=== PATIENT | female | born 1935 | race Caucasian/White ===

== ENCOUNTER 2017-12-07 05:55 | Observation (INO) ==
[2017-12-07] MEDS ORDERED: Bacitracin 50,000 UNIT, Polymyxin B Sulfate 500,000 UNIT, Sodium Chloride IRRigation 1,... IR ONE (06:00)
[2017-12-07] MEDS ORDERED: CeFAZolin Syr 2,000MG/20 ML 2,000 MG/20 ML SYRINGE IVPB ONE (06:24)
[2017-12-07] MEDS ORDERED: Ringers Solution, Lactated 1,000 ML IVC SCH ×2 (06:30→11:45)
[2017-12-07] MEDS ORDERED: Dexamethasone 4 MG/ML VIAL ONE (07:12)
[2017-12-07] MEDS ORDERED: Ondansetron 4 MG/2 ML VIAL ONE (07:12)
[2017-12-07] MEDS ORDERED: *HR* Rocuronium Bromide 50 MG/5 ML VIAL ONE (07:12)
[2017-12-07] MEDS ORDERED: Lidocaine -MPF 2% 2 ML VIAL ONE ×3 (07:12→08:03)
[2017-12-07] MEDS ORDERED: *HR* FentaNYL (PF) 100 MCG/2 ML VIAL ONE ×2 (07:12→09:18)
[2017-12-07] MEDS ORDERED: *HR* Propofol 200 MG/20 ML VIAL IVP ONE (07:16)
--- NOTE | 2017-12-07 07:20 | Anesthesia Evaluation PreOp ---
Date of Encounter: 12/07/17 Time of Encounter: 07:18 - Past History Planned Operation: Laminectomy L4-S1 Cardiac History: HTN, Hyperlipidemia, Cardiac Surgery (CABG x 2, 2001), Cardiac Stent (x2 2015), Other (Cleared for surgery by Fermenting Cellar Dropper) Pulmonary History: Denies Any Significant HX DIRECTOR OF MIDWIFERY/STAFF MIDWIFE History: Denies Any Significant HX Other Medical History: Thyroid (Hypo), Other (Breast CA) Anesthesia History: Past Anesthesia (Shoulder, CABG) : No Alcohol Use: none Drug use: none Medications and Allergies DULoxetine [Cymbalta] 30 mg PO DAILY 10/26/17 [History] HYDROcodone/Acet 5/325 mg [[place] 5-325 mg] 1 tab PO Q6H PRN 10/26/17 [History] Ibuprofen [Advil] 200 mg PO TID 10/26/17 [History] Levothyroxine [Synthroid] 125 mcg PO 0630 10/26/17 [History] Loratadine [Claritin] 10 mg PO DAILY 10/26/17 [History] Metoprolol [Lopressor] 25 mg PO BID 10/26/17 [History] Omeprazole Magnesium [Prilosec Otc] 20 mg PO DAILY 10/26/17 [History] Quetiapine Fumarate [SEROquel] 12 mg PO HS 10/26/17 [History] Rosuvastatin Calcium [Crestor] 20 mg PO DAILY 10/26/17 [History] 3 Allergy/AdvReac Type Severity Reaction Status Date / Time No Known Allergies Allergy Verified 11/19/17 15:04 - Meds/Allergy Pre-op Review Medications Reviewed: Yes Allergies Reviewed: Yes Beta Blockers on Current Med List: Yes If Beta Blockers taken, Date/Time (Last Dose taken): 04:30 12/07/2017 Anesthesia Results - Labs Laboratory Tests 11/19/17 11/19/17 11/19/17 15:05 15:05 15:05 WBC 7.9 Hgb 14.6 Hct 42.7 Plt Count 225 INR 1.0 Sodium 139 Potassium 4.2 Chloride 102 Carbon Dioxide 28 BUN 18 Creatinine 0.89 - Imaging EKG: report reviewed (SINUS RHYTHM NONSPECIFIC T-WAVE ABNORMALITY) Anesthesia Exam O2 Sat Height 1.57 m Height 1.57 m Height 1.57 m Weight 79.832 kg Weight 79.832 kg Weight 79.832 kg O2 Sat by Pulse Oximetry 94 Vital Signs Temp Pulse Resp BP Pulse Ox 98.2 F 68 18 141/73 94 12/07/17 06:33 12/07/17 06:33 12/07/17 06:33 12/07/17 06:33 12/07/17 06:33 NPO (# of Hours): > 8 hrs Pain Scale: 0 Pain Scale Used: Numeric (1 - 10) - HEENT Pupil (Motor): Pupils equal, EOMI Mallampati: III Teeth: Normal Oral Opening: Greater than 3 - DIRECTOR OF MIDWIFERY/STAFF MIDWIFE LOC: Oriented DIRECTOR OF MIDWIFERY/STAFF MIDWIFE Motor: Normal RUE, Normal LUE, Normal RLE, Normal LLE, Normal Face DIRECTOR OF MIDWIFERY/STAFF MIDWIFE Sensory: Normal: RUE, LUE, RLE, LLE, Face - Cardiac Rhythm: Regular Murmur: None JVD: No Carotid Bruit: No - Pulmonary Breath Sounds: bilateral Clear Respiratory Effort: Symmetrical Anesthesia Assess/Plan ASA Score: 3 Modified Heber Scale for Level of Consciousness: Cooperative, oriented, and tranquil Anesthetic Plan: General Autologous Blood: Yes Monitoring Plan: Standard Monitors, A-Line Recovery Plan: PACU
[2017-12-07] MEDS ORDERED: *HR* Etomidate 40 MG/20 ML VIAL IVP ONE (07:35)
[2017-12-07] MEDS ORDERED: Heparin 1,000 UNITS/500 mL 500 ML ONE (07:37)
--- NOTE | 2017-12-07 07:37 | History & Physical Report ---
Date of Encounter: 12/07/17 Time of Encounter: 07:36 24 Hour HP Update - Instructions Instructions: If the History and Physical is less than 30 days old and was completed prior to A.M. admission and or procedure and has NOT been updated on calendar day of procedure please complete this update prior to performing procedure. - Update Patient reports changes in Medical Condition: No Changes in examination, assessment, or condition: No Changes in Medication: No Preop tests/diagnostics Reviewed: Yes Pre-Op MRSA Screen: Negative Surgery Remains Indicated: Yes Consent for Planned Operative Procedure(s) Verified: Yes - Pre-Operative Checklist Preoperative Checklist Indicated: No Prophylactic Antibiotic Ordered: Yes Home Medications Include Beta Thais: Yes Beta Thais Taken Today (Day of Surgery): No Beta Thais Taken Yesterday (Day Prior to Surgery): Yes Is VTE Prophylaxis Indicated?: Yes
[2017-12-07] MEDS ORDERED: *HR* Succinylcholine 200 MG/10 ML VIAL IVP ONE (07:53)
[2017-12-07] MEDS ORDERED: *HR* PHENYLEPHRINE 1,000 MCG/10 ML SYRINGE IVP ONE (07:56)
[2017-12-07] MEDS ORDERED: EPHEDrine 50 MG/ML VIAL ONE (08:49)
[2017-12-07] MEDS ORDERED: *HR* Promethazine 25 MG/ML VIAL IVP PRN (09:16)
[2017-12-07] MEDS ORDERED: MORPHINE SUL Oral CONC 10 MG/0.5 ML ORAL.SYG SL PRN (09:16)
[2017-12-07] MEDS ORDERED: Acetaminophen IV 1,000 MG/100 ML INFUS..BTL IVPB ONE (09:16)
[2017-12-07] MEDS ORDERED: Dexamethasone 4 MG/ML VIAL IVP ONE (09:16)
[2017-12-07] MEDS ORDERED: *HR* OxyCODONE Immed Rel 5 MG TABLET PO PRN (09:16)
[2017-12-07] MEDS ORDERED: Neostigmine Methylsulfate 3 MG/3 ML SYRINGE ONE (09:40)
[2017-12-07] MEDS ORDERED: SUGAMMADEX SODIUM 500 MG/5 ML VIAL IV ONE (10:01)
--- NOTE | 2017-12-07 10:08 | Orthopedic Operative Note ---
Date of procedure: 12/07/17 Pre-op diagnosis: Lumbar stenosis, lumbar radiculopathy Post-op diagnosis: same Operation/Findings: Laminectomy L4-S1: The patient was brought to the operative theater where she underwent general endotracheal anesthesia. She was given antibiotics prior to the start of the procedure. Compression boots and stockings were used for deep vein thrombosis prophylaxis. The patient was placed prone on a Mal table. The back was prepped and draped in the usual sterile fashion. An incision was marked and centered over the L4-S1 interspaces in the midline. We used Bovie cautery to make an incision and then this incision was deepened through the lumbar fascia. Bovie cautery and Hardy elevators were used to reflect the paraspinal musculature to the lateral extent of the L4-5 and L5-S1 facet joints bilaterally. Marcelina clamps were placed over the spinous processes of L4 and L5 and an intraoperative lateral fluorograph was obtained. A discusssion was held between the radiologist and surgeon who both confirmed we were at the correct operative level. We then removed the supraspinous and interspinous ligaments between L5 and S1 and subsequently removed the ligamentum flavum from its origin on the distal undersurface of the L5 lamina. The ligamentum flavum was noted to be quite hypertrophied as well as the facets were hypertrophied. This required performing a laminectomy of L5 with partial medial facetectomies including undercutting of the L5-S1 facets to decompress the lateral recesses. We moved proximally to the L4-5 level and again removed the supraspinous and interspinous ligaments as well as removed the hypertrophied ligamentum flavum at this L4-5 level. We undercut the facets at L5-4-5 to decompress the lateral recesses as well as did partial medial facetectomies at this level. After the decompression was complete we checked the foramen and the traversing nerve roots at L4-5 and L5-S1 and they were found to be free and patent. We copiously irrigated the wound and then closed the wound in layers with 1 Vicryl for the fascia, 2-0 Vicryl for the subcutaneous tissue, and Dermabond was used for skin closure. Sterile dressings were placed over the wound, the patient was turned supine in a hospital bed, and was extubated in the operative theater. All sponge needles and instrument counts were correct at the end of the procedure. The patient tolerated the procedure well without complications. Anesthesia: GETA Surgeon: Titus Saleh Jr Was there an food service assistant present: No Estimated blood loss (cc): 30 Specimen: None Condition: stable Disposition: PACU
[2017-12-07] MEDS ORDERED: Naloxone 0.4 MG/ML INJ IVP PRN (11:45)
[2017-12-07] MEDS ORDERED: *HR* OxyCODONE/APAP 10/325 TABLET PO PRN (12:47)
[2017-12-07] MEDS: ceFAZolin 2,000 MG in 0.9 % Sodium Chloride 100 ML IVPB SCH (16:38)
--- NOTE | 2017-12-07 18:45 | Anesthesia Evaluation Post Op ---
Date of Encounter: 12/07/17 Time of Encounter: 11:35 Notes: Patient's vital signs have been reviewed. Patient is stable postoperatively and has adequately recovered from anesthesia. Patient is determined to have stable airway patency and respiratory function including respiratory rate and oxygen saturation. Patient has a stable heart rate, blood pressure and adequate hydration. Patients mental status is acceptable. Patients temperature is appropriate. Pain and nausea are adequately controlled. - Discharge PostOp Status: Transfer Patient to floor
[2017-12-07] MEDS: *HR* OxyCODONE Immed Rel 5 MG TABLET PO PRN (20:42)
[2017-12-08] MEDS: ceFAZolin 2,000 MG in 0.9 % Sodium Chloride 100 ML IVPB SCH (00:10)
[2017-12-08] MEDS: *HR* OxyCODONE Immed Rel 5 MG TABLET PO PRN (04:06)
[2017-12-08] MEDS: Ondansetron 4 MG/2 ML VIAL IVP PRN ×2 (06:47→21:39)
[2017-12-08] MEDS ORDERED: *HR* OxyCODONE Immed Rel 5 MG TABLET PO PRN (07:35)
--- NOTE | 2017-12-08 07:41 | Orthopedics Progress Note ---
Date of Encounter: 12/08/17 Time of Encounter: 07:30 - Assessment and Plan (1) Lumbar stenosis Current Visit: Yes Status: Chronic Qualifiers: Neurogenic claudication status: unspecified Qualified Code(s): M48.061 - Spinal stenosis, lumbar region without neurogenic claudication (2) Lumbar radiculopathy Current Visit: Yes Status: Chronic (3) Focal motor deficit Current Visit: Yes Status: Chronic (4) S/P laminectomy Current Visit: Yes Status: Acute Subjective Principal diagnosis: left foot drop Interval history: POD#1 Date of procedure: 12/07/17 Pre-op diagnosis: Lumbar stenosis, lumbar radiculopathy Post-op diagnosis: same Operation/Findings: Laminectomy L4-S1 The patient complains of mild nausea. She states that she gets this a lot secondary to the anesthesia. No family available at bedside. Patient examined at bedside and is resting comfortably supine in bed. Afebrile vital signs are stable with the exception of occasionally noted documentation patient required oxygen via nasal cannula to maintain oxygen saturation. She is noted to be on room air at this time. Incision is clean dry and intact. Neurovascularly intact with regard to bilateral lower extremities. Fires all upper and lower extremity motor groups. The foot drop appears to be nearly resolved in the left ankle. She is nearly able to fully dorsiflex. Assessment: Stable postoperative. Foot drop - near complete resolution Plan: Reviewed postoperative restrictions and precautions. Does not appear the patient fully comprehends postoperative restrictions. She does have underlying and baseline dementia. We will make sure the family is aware. Mobilize with therapy - awaiting their evaluation at this time. Continue analgesics as needed - secondary to patient's baseline dementia and that she takes Seroquel at home we will limit patient's narcotic use while here. We will decrease oxycodone 25 mg every 6 hours as needed for severe pain only. We will also add a Lidoderm patch to help with local pain relief as patient states that really it is only her low back that hurts and only when she moves. Discharge planning - awaiting therapy recommendations - it appears the patient was at home prior to surgery. We will have social work and therapy knee with the patient and family to evaluate appropriate discharge planning. Dr. Saleh to see this patient later in the day for reevaluation of foot drop as well as discussion with family if available. If not available we will contact family by phone. Objective Vital signs: Vital Signs Temp Pulse Resp BP Pulse Ox 12/08/17 06:43 98.5 F 94 18 127/73 93 12/08/17 03:52 98.9 F 90 16 151/74 96 12/07/17 23:32 98.3 F 85 16 121/67 95 12/07/17 21:42 2 12/07/17 19:13 98.5 F 87 16 135/80 97 12/07/17 16:43 98.0 F 87 14 125/84 97 12/07/17 15:57 98.2 F 91 18 125/69 96 12/07/17 11:58 97.8 F 83 18 137/75 90 12/07/17 11:33 80 20 133/75 92 12/07/17 11:23 97.2 F L 81 20 137/77 93 12/07/17 11:13 78 20 142/77 90 12/07/17 11:03 81 20 153/87 92 12/07/17 10:53 97.0 F L 82 20 147/89 92 12/07/17 10:43 87 20 160/85 91 12/07/17 10:33 89 20 163/92 92 12/07/17 10:23 97.7 F 84 16 174/92 89 Intake and Output 12/07/17 12/07/17 12/08/17 15:59 23:59 07:59 Intake Total 20 / 20 100 / 100 Output Total 230 / 230 200 / 200 100 / 100 Balance -210 / -210 -100 / -100 -100 / -100 Intake: IV Fluids 20 / 20 100 / 100 Ancef Syringe 2,000 MG/20 ML 2, 20 / 20 000 mg In 20 ml @ 200 mls/hr IVPB PREOP ONE Rx#:[id number] Ancef 2,000 MG In 0.9 % Sodium 100 / 100 Chloride 100 ML @ 200 mls/hr IVPB Q8HR TOM Rx#:[id number] Output: Urine 200 / 200 200 / 200 100 / 100 Estimated Blood Loss 30 / 30 Other: # Voids 1 - VTE Documentation of Mechanical Device: Intermittent pneumatic compression device Consult Discharge Plan - Plan Referrals: Celina Hargrove MD [Primary Care Provider] - Prescriptions: OxyCODONE Immed Rel [Roxicodone 5 MG] 5 mg PO Q6HR PRN 7 Days #28 tablet PRN Reason: Severe Pain
[2017-12-08] MEDS: Loratadine 10 MG TABLET PO SCH (08:57)
[2017-12-08] MEDS: *HR* HYDROcodone/Acet 5/325 mg TABLET PO PRN ×2 (14:24→21:35)
[2017-12-09] MEDS: *HR* HYDROcodone/Acet 5/325 mg TABLET PO PRN (06:09)
[2017-12-09] MEDS: Loratadine 10 MG TABLET PO SCH (07:39)
[2017-12-09] MEDS ORDERED: Acetaminophen 325 MG TABLET PO PRN (09:07)
[2017-12-09] MEDS ORDERED: *HR* HYDROcodone/Acet 5/325 mg TABLET PO PRN (09:08)
--- NOTE | 2017-12-09 09:08 | Orthopedics Progress Note ---
Date of Encounter: 12/09/17 Time of Encounter: 08:30 - Assessment and Plan (1) Lumbar stenosis Current Visit: Yes Status: Chronic Qualifiers: Neurogenic claudication status: unspecified Qualified Code(s): M48.061 - Spinal stenosis, lumbar region without neurogenic claudication (2) Lumbar radiculopathy Current Visit: Yes Status: Chronic (3) Focal motor deficit Current Visit: Yes Status: Resolved (4) S/P laminectomy Current Visit: Yes Status: Acute Subjective Principal diagnosis: left foot drop Interval history: POD#2 Date of procedure: 12/07/17 Pre-op diagnosis: Lumbar stenosis, lumbar radiculopathy Post-op diagnosis: same Operation/Findings: Laminectomy L4-S1 The patient states she is feeling quite well. She denies any complaints of nausea. No family available at bedside. Patient examined at bedside and is resting comfortably supine in bed. Afebrile vital signs are stable. Does not appear that she required oxygen through the night. She is noted to be on room air at this time. Incision is clean dry and intact. Neurovascularly intact with regard to bilateral lower extremities. Fires all upper and lower extremity motor groups. The foot drop appears to be resolved in the left ankle. She is able to fully dorsiflex. Nursing staff informs that the family is concerned about her inability thus far to pass gas. We will get a KUB in order stool softeners for the patient as it appears that she takes these regularly at home. Assessment: Stable postoperative. Foot drop - resolved Lack of passing gas Plan: Reviewed postoperative restrictions and precautions. Does not appear the patient fully comprehends postoperative restrictions. She does have underlying and baseline dementia. We will make sure the family is aware. Mobilize with therapy - therapy is recommending ECF. We will make sure that continuity is available to the social insurance specialist. Continue analgesics as needed - secondary to patient's baseline dementia and that she takes Seroquel at home we will limit patient's narcotic use while here. We will decrease again from oxycodone 5 mg every 6 hours to [place] 5 mg every 6 hours as needed for severe pain. Dr. Saleh's is to meet with patient's family today during his rounds as set up yesterday during his rounds. Discharge planning - it appears the patient was at home prior to surgery. We will have social work meet with the patient and family to evaluate appropriate discharge planning regarding home with home health versus ECF. Dr. Saleh to see this patient later in the day for reevaluation as well as discussion with family if available. Objective Vital signs: Vital Signs Temp Pulse Resp BP Pulse Ox 12/09/17 06:35 97.9 F 87 16 111/73 96 12/08/17 23:31 97.8 F 84 15 108/69 90 12/08/17 18:36 98.3 F 89 15 127/72 93 12/08/17 15:38 97.8 F 87 18 91/55 93 12/08/17 11:06 98.6 F 93 112/64 94 Intake and Output 12/08/17 12/09/17 12/09/17 23:59 07:59 15:59 Other: # Voids 1 - VTE Documentation of Mechanical Device: Intermittent pneumatic compression device Consult Discharge Plan - Plan Referrals: Celina Hargrove MD [Primary Care Provider] - Prescriptions: OxyCODONE Immed Rel [Roxicodone 5 MG] 5 mg PO Q6HR PRN 7 Days #28 tablet PRN Reason: Severe Pain
[2017-12-10 07:16] VITALS: BP 122/77
[2017-12-10] MEDS ORDERED: Simethicone 80 MG TAB.CHEW PO PRN (08:03)
--- NOTE | 2017-12-10 08:28 | Discharge Summary ---
Date of Encounter: 12/10/17 Time of Encounter: 08:25 - Discharge Diagnosis (1) Lumbar stenosis Priority: Primary Status: Chronic Qualifiers: Neurogenic claudication status: unspecified Qualified Code(s): M48.061 - Spinal stenosis, lumbar region without neurogenic claudication (2) Lumbar radiculopathy Priority: Primary Status: Chronic (3) S/P laminectomy Priority: Primary Status: Acute - Hospital Course Hospital course: Ms. Avilez is a 82 year old female status post Date of procedure: 12/07/17 Pre-op diagnosis: Lumbar stenosis, lumbar radiculopathy Post-op diagnosis: same Operation/Findings: Laminectomy L4-S1 The patient's postoperative course was uncomplicated with the exception of difficulty passing flatus. KUB reveals no specific abnormality relating to the bowels such as obstruction. Patient has tolerated clear liquid diet well and has had only mild abdominal distention and discomfort. Patient also has baseline dementia nurse concern for patient's unawareness regarding whether or not she has passed flatus. At patient's family's request, fiber supplement was added by Dr. Saleh. Fluids were encouraged. Simethicone was added as well. In addition, patient has had all opiate medication held for approximately 24 hours before discharge and effort to reduce opioid related constipation. Patient was converted from outpatient bed to observation status on 12/09/17. Progressed from intravenous analgesic needs to oral analgesic needs only. Remained neurovascularly intact and mobilized satisfactorily. All intraoperative and/or postoperative radiographic studies were satisfactory. Patient is discharged with plan for rehabilitation and follow-up in 2 weeks post discharge on analgesic medication and patient's home medications. Plan was discussed with and approved by Dr. Saleh. - Time Spent with Patient Total time spent providing and/or coordinating discharge services: - Discharge Medications Home Medications: DULoxetine [Cymbalta] 30 mg PO DAILY 10/26/17 [History] Loratadine [Claritin] 10 mg PO DAILY 10/26/17 [History] Metoprolol [Lopressor] 25 mg PO BID 10/26/17 [History] Omeprazole Magnesium [Prilosec Otc] 20 mg PO DAILY 10/26/17 [History] Quetiapine Fumarate [Seroquel] 25 mg PO HS 10/26/17 [History] Rosuvastatin Calcium [Crestor] 20 mg PO DAILY 10/26/17 [History] Levothyroxine [Synthroid] 112 mcg PO 0630 12/07/17 [History] Acetaminophen [Tylenol] 650 mg PO Q6HR PRN tablet 12/10/17 [Rx] Calcium Polycarbophil [Fibercon] 1,250 mg PO DAILY tablet 12/10/17 [Rx] Cyclobenzaprine [Flexeril] 10 mg PO TID PRN tablet 12/10/17 [Rx] Docusate [Colace] 100 mg PO BID capsule 12/10/17 [Rx] Lidocaine Patch [Lidoderm 5% patch] 1 each TP DAILY adh..patch 12/10/17 [Rx] Simethicone [Gas-X] 80 mg PO TID PRN tab.chew 12/10/17 [Rx] Allergies/Adverse Reactions: 3 Allergy/AdvReac Type Severity Reaction Status Date / Time No Known Allergies Allergy Verified 12/07/17 07:38 Date of admission: 12/07/17 Primary care physician: Celina Hargrove Consults: 12/07/17 11:45 Consult to Nurse Navigator [CONS] Routine Comment: spine navigator Consult to Occupational Therapy [CONS] Routine Comment: Evaluate, develop and implement POC Reason for Consult: Postoperative rehabilitation Does patient have active BEDREST order?: No Is patient medically & hemodynamically stable?: Yes Patient assessed for mobility or mobilized this visit?: No Consult to Physical Therapy [CONS] Routine Comment: Evaluate, develop and implement POC Reason for Consult: Postoperative rehabilitation Does patient have active BEDREST order?: No Is patient medically & hemodynamically stable?: Yes Patient assessed for mobility or mobilized this visit?: No 12/07/17 15:40 Consult to Signal Helper [CONS] Routine Reason for SW Consult: possible SNF - VTE Documentation of Mechanical Device: Intermittent pneumatic compression device - Impressions ITS Impressions Fluoroscopy 12/07/17 09:50 IMPRESSION: Intraprocedural fluoroscopic spot images as above. See separate procedure report for more information. D/ / 12/07/2017 10:37:08 Matthew Multani MD / [email or web address] Interpreting Provider: Matthew Multani MD Lumbar Spine X-Ray 12/07/17 09:50 IMPRESSION: Intraprocedural fluoroscopic spot images as above. See separate procedure report for more information. D/ / 12/07/2017 10:37:08 Matthew Multani MD / [email or web address] Interpreting Provider: Matthew Multani MD X-Ray 12/09/17 09:53 IMPRESSION: Nonspecific bowel gas pattern without definite findings for obstruction or intraperitoneal free air. If there is persistent clinical concern consider CT evaluation. D/ / 12/09/2017 10:40:10 Abraham Mir MD / [place] Interpreting Provider: Abraham Mir MD - Patient Status Disposition: Transfer Inpatient Rehab Fac Condition: Fair Functional capacity at discharge: uses cane/walker Overall status at discharge: patient is progressing back to baseline - Discharge Instructions Follow Up With: Celina Hargrove MD [Primary Care Provider] - - Diet and Activity Activity: as per physical therapy Diet: other (Clear liquid diet until bowel movement)
--- NOTE | 2017-12-10 08:39 | Event Note ---
Date of Encounter: 12/10/17 Time of Encounter: 08:37 Obs order placed this morning after nursing staff made this provider and Dr. Saleh aware order didn't save into computer yesterday. Order was intended to be placed on 12/09/[address] Saleh aware.
[2017-12-10] MEDS: Loratadine 10 MG TABLET PO SCH (08:51)
== END 2017-12-10 10:35 ==
LOC: 3NENU 05:55 → SAMDAY 05:55 → 3BNU 11:35 → 3NENU 16:20
PROVIDERS: ADMIT Orthopaedic Surgery Orthopaedic Surgery of the Spine; ATTEND Orthopaedic Surgery Orthopaedic Surgery of the Spine